=== PATIENT | male | born 1955 | race Caucasian/White ===

== ENCOUNTER → 2017-01-29 07:49 | Outpatient (CLI) | payer BC ==
--- NOTE | 2017-02-03 08:21 | EMG ---
PATIENT:ELAINA COLLIER DATE OF SERVICE: 01/29/17 MEDICAL RECORD: [id number] DATE OF : 55 LOCATION: [facility] ADMISSION DATE: REFERRING PHYSICIAN: JUANA DUGAN INTERPRETING PHYSICIAN: LEW LLOYD MD DATE OF SERVICE: 01/29/2017 Electromyographic Report REFERRED BY: Juana Dugan MD, as an outpatient. DATE OF EXAMINATION: 01/29/2017 ELECTROMYOGRAPHIC DATA: Electromyographic examination is severely limited. Per request of the referring physician, the study is limited to the nerve conduction studies only and is limited to the radial nerve conduction studies only. In the right upper extremity, antidromic right radial sensory stimulation elicits a response with a distal latency of 8.9 milliseconds and amplitude of 60 microvolts. In the left upper extremity, antidromic left radial sensory stimulation elicits a response with a distal latency of 10.3 milliseconds and amplitude of 55 microvolts. INTERPRETATION: Electromyographic examination of both upper extremities is severely limited to the nerve conduction studies and the radial nerve conduction studies only. In distal latencies for stimulation bilaterally are prolonged. In the absence of any other data, a little conclusion maybe drawn in this regard. TRANSINT:[id number] Voice Confirmation ID: [id number] DOCUMENT ID: [id number] LEW LLOYD MD at 0821 CC: [id number] DICTATION DATE: 01/30/17 0808 CROP RANCH HAND: 01/30/17 1114 DEP CLI 01/29/17 [place] [id number] [place] [id number]
== END | disposition home or self-care (01) ==
LOC: D.CN 07:49
DX: G56.32 Lesion of radial nerve, left upper limb (principal); G56.31 Lesion of radial nerve, right upper limb